=== PATIENT | female | born 2000 | race Caucasian/White ===

== ENCOUNTER 2021-11-18 23:05 | Emergency (ER) | payer BC ==
[2021-11-19] MEDS ORDERED: DOXYCYCLINE HY100 M2 PO (00:32)
== END 2021-11-19 00:37 | disposition home or self-care (01) ==
LOC: ER1 23:05
DX: S80.862A Insect bite (nonvenomous), left lower leg, initial encounter (principal); L03.116 Cellulitis of left lower limb; J45.909 Unspecified asthma, uncomplicated; W57.XXXA Bitten or stung by nonvenomous insect and other nonvenomous arthropods, initial encounter
CPT/HCPCS: 99283